=== PATIENT | male | born 1970 | race Caucasian/White ===

== ENCOUNTER → 2018-04-13 | Outpatient (CLI) | payer BC ==
--- NOTE | 2018-04-13 14:03 | Diagnostic Imaging Report ---
INDICATION: Neck pain. AP, lateral, and odontoid views of the cervical spine are obtained. FINDINGS: Prevertebral soft tissues are within normal limits. Both height and disc spaces are maintained without evidence of fracture or subluxation. The odontoid is intact. IMPRESSION: No radiographic evidence of acute cervical spine abnormality. Dictated by: Dictated on workstation # [id number]
== END ==
LOC: RAD 13:37
PROVIDERS: ATTEND Family Medicine
DX: M54.2 Cervicalgia (principal)
CPT/HCPCS: 72040

== ENCOUNTER 2018-12-31 08:59 | Outpatient (CLI) | payer BC ==
[~2018-12-31] VITALS: Ht 172.7 cm; Wt 74.4 kg
[2018-12-31] MEDS ORDERED: ATOR10TA66 PO (15:02)
== END 2018-12-31 15:03 | disposition home or self-care (01) ==
LOC: PREOP 08:59
PROVIDERS: ATTEND Surgery
DX: Z01.818 Encounter for other preprocedural examination (principal)

== ENCOUNTER 2019-01-06 09:17 | Day surgery (SDC) | payer BC ==
[~2019-01-06] VITALS: Ht 172.7 cm; Wt 74.4 kg
[~2019-01-06 09:17] MED LIST: ATOR10TA66 PO
[2019-01-06] MEDS ORDERED: NS IV 500 ML 500 ML ONE (09:18)
[2019-01-06] MEDS ORDERED: NS IV 500 ML 500 ML IV PRN (09:24)
[2019-01-06] MEDS ORDERED: MIDAZOLAM 2 MG/2 ML (VERSED) VIAL IVP ONE (09:30)
[2019-01-06] MEDS ORDERED: fentaNYL INJECTION 100 MCG/2 ML AMP IVP ONE (09:30)
[2019-01-06] MEDS ORDERED: LIDOCAINE JELLY 2% 6 ML SYRINGE MM PRN (09:30)
[2019-01-06 09:34] VITALS: BP 103/78
[2019-01-06] MEDS ORDERED: MIDAZOLAM 2 MG/2 ML (VERSED) VIAL ONE ×4 (10:04→10:05)
[2019-01-06] MEDS ORDERED: fentaNYL INJECTION 100 MCG/2 ML AMP ONE (10:05)
[2019-01-06] MEDS ORDERED: LIDOCAINE JELLY 2% 6 ML SYRINGE ONE (10:05)
--- NOTE | 2019-01-06 10:22 | Conscious Sedation/ASA ---
Conscious Sedation Pre-Proced Time 10:00 ASA Score 2 For ASA 3 and 4: Consider anesthesia and medical clearance. Also, for patients with a history of failed moderate sedation consider anesthesia. Airway Lungs Heart ASA score ASA 1: a normal healthy patient ASA 2: a patient with a mild systemic disease (mid diabetes, controlled hypertension, obesity ASA 3: a patient with a severe systemic disease that limits activity (angina, COPD, prior Myocardial infarction) ASA 4: a patient with an incapacitating disease that is a constant threat to life (CHF, renal failure) ASA 5: a moribund patient not expected to survive 24 hrs. (ruptured aneurysm) ASA 6: a declared brain- patient whose organs are being harvested. For emergent operations, add the letter E after the classification Mallampati Classification Grade 1 Sedation Plan Analgesia, Amnesia, Plan communicated to team members, Discussed options with patient/fam, Discussed risks with patient/fam The patient is an appropriate candidate to undergo the planned procedure, sedation, and anesthesia. The patient immediately re-assessed prior to indication. NAGI CARTAGENA MD Jan 06, 2019 10:22
--- NOTE | 2019-01-06 10:23 | Progress Note-Pre Operative ---
Pre-Operative Progress Note H&P Reviewed The H&P was reviewed, patient examined and no changes noted. Date Seen by Provider: Jan 06, 2019 Time Seen by Provider: 10:00 Date H&P Reviewed: Jan 06, 2019 Time H&P Reviewed: 10:00 Pre-Operative Diagnosis: screening o NAGI CARTAGENA MD Jan 06, 2019 10:22
--- NOTE | 2019-01-06 10:24 | Discharge Inst-Surgical ---
D/C Lap Instructions-OSIEL Follow Up Activity as tolerated High Fiber Diet 25g or more per day Avoid Alcohol, Caffeine, Spicy [place] and Acid foods. Drink 64 fluid oz or more of fluids per day. Symptoms to Report: Fever over 101 degree F, Nausea/Vomiting If any problems/questions: Contact your physician or go to Emergency Room NAGI CARTAGENA MD Jan 06, 2019 10:24
[2019-01-06] MEDS ORDERED: HYDROcodone/APAP 5 MG/325 MG (LORTAB) TAB PO PRN (10:30)
[2019-01-06] MEDS ORDERED: ACETAMINOPHEN 325 MG TABLET PO PRN (10:30)
[2019-01-06] MEDS ORDERED: morphine INJ 10 MG/ML 1ML (SYR OR VIAL) IVP PRN (10:30)
[2019-01-06] MEDS ORDERED: ONDANSETRON 4 MG/2 ML (SDV) Z0FRAN IVP PRN (10:30)
--- NOTE | 2019-01-06 10:54 | Progress Note-Post Operative ---
Post-Operative Progess Note Surgeon (s)/Hedis Analyst (s) Surgeon NAGI CARTAGENA MD Hedis Analyst: none Pre-Operative Diagnosis screening colo Post-Operative Diagnosis mild-mod sigmoid and descending diverticulosis. Procedure & Operative Findings Date of Procedure 01/06/19 Procedure Performed/Findings colonoscopy Anesthesia Type cs Estimated Blood Loss Estimated blood loss (mL): minimal Specimens/Packing Specimens Removed none NAGI CARTAGENA MD Jan 06, 2019 10:54
[2019-01-06 10:55] VITALS: BP 100/62
[2019-01-06 11:15] VITALS: BP 117/83
[2019-01-06 11:45] VITALS: BP 117/83
--- NOTE | 2019-01-06 15:36 | OPERATIVE REPORT ---
DATE OF SERVICE: 01/06/2019 ATTENDING PRIMARY CARE PHYSICIAN: Dr. Yates. PREOPERATIVE DIAGNOSIS: Screening colonoscopy. POSTOPERATIVE DIAGNOSIS: Mild to moderate sigmoid diverticulosis. PROCEDURE PERFORMED: Colonoscopy. SURGEON: Nagi Cartagena MD. ANESTHESIA: Conscious sedation. ESTIMATED BLOOD LOSS: Minimal. FINDINGS: As above and postop. DISPOSITION: The patient tolerated the procedure well. INDICATIONS: The patient is a 48-year-old male referred over to us for screening colonoscopy. He has not had one up to this point in his life. He states that he is otherwise doing well. He does not report any major issues with diarrhea nor constipation as well as no red blood per rectum nor any dark tarry stools. He also does not report any family history of colon cancer. DESCRIPTION OF PROCEDURE: The patient was brought to the endoscopy suite, laid in the left lateral decubitus position. After adequate IV pain and sedative medications and conscious sedation anesthesia, a digital rectal examination was performed. There were no significant hemorrhoids identified. Normal sphincter tone was felt and there were no palpable masses. Prostate gland was palpable and appeared normal. The endoscope was then intubated to the anus and rectum gently insufflated. The endoscope was then advanced through the valves of Black of the rectum with no polyps or any neoplasms identified. We then proceeded to the sigmoid colon and descending colon where there was a mild to moderate diverticulosis identified. There were no mucosal inflammatory changes to indicate any active diverticulitis. The endoscope was then advanced to the remainder of the descending, transverse and ascending colon to the cecum. These segments were normal. There were no polyps or any neoplasms identified throughout the colon or rectum. The endoscope was then slowly withdrawn while taking a second look and suctioning of residual air with no additional findings. The patient tolerated the procedure well. We will recommend continued management with a high fiber diet with at least 30 grams of fiber daily as well as significant amounts of water to promote soft stools on a daily basis and prevent constipation, hard stools or straining upon defecation. He does not need another colonoscopy for another 10 years. Job ID: [id number] DocumentID: [id number] Dictated Date: 01/06/2019 10:47:13 Hydraulic Strainer Operator Date: 01/06/2019 15:35:31 Dictated By: NAGI CARTAGENA MD
== END 2019-01-06 11:45 | disposition home or self-care (01) ==
LOC: ENDO 09:17
PROVIDERS: ATTEND Surgery
DX: Z12.11 Encounter for screening for malignant neoplasm of colon (principal); K57.30 Diverticulosis of large intestine without perforation or abscess without bleeding; E78.00 Pure hypercholesterolemia, unspecified; Z79.899 Other long term (current) drug therapy

== ENCOUNTER 2022-12-08 14:22 | Emergency (ER) | payer BC ==
[~2022-12-08] VITALS: Ht 175.3 cm; Wt 74.8 kg
[2022-12-08 14:33] VITALS: BP 116/88
--- NOTE | 2022-12-08 14:50 | ED General ---
General Chief Complaint: Laceration Stated Complaint: HEAD LACERATION Nursing Triage Note: PT AMB TO [facility] WITH COMPLAINT OF LACERTION TO RIGHT FOREHEAD. STATES WAS PLAYING PICKLE BALL, TRIP AND HIT HEAD ON METAL POLE. DENIES LOC. ALSO HAS ABRAISIONS TO BILATERAL KNEES AND RIGHT SHOULDER. UNKNOWN LAST TETANUS SHOT. (DARSHANA GATES) History of Present Illness Date Seen by Provider: December 08, 2022 Time Seen by Provider: 14:35 Initial Comments 52-year-old male was playing pickle ball at the [employer] when he tried to go for a ball, he fell hitting his head on a pole and abrasions to his right shou lder, bilateral knees and right ear. He had a noted laceration above his right eye. He denies any loss of consciousness. He has a mild headache. He does not take anticoagulants. He denies any vision changes. He is unsure of his last tetanus shot but believes its been greater than 10 years. Timing/Duration: 1/2 Hour Severity: Moderate Modifying Factors: improves with Rest Associated Systoms: Denies Symptoms (DARSHANA GATES) Allergies and Home Medications Allergies Coded Allergies: No Known Drug Allergies (Unverified , 12/31/18) Patient Home Medication List Home Medication List Reviewed: Yes (DARSHANA GATES) Atorvastatin Calcium (Atorvastatin Calcium) 10 Mg Tablet, 10 MG PO DAILY, (Reported) Entered as Reported by: WIN WAGGONER on 12/31/18 1502 Review of Systems Review of Systems Constitutional: no symptoms reported, see HPI Musculoskeletal: see HPI; No joint pain Skin: see HPI, other (Laceration 4 cm above right eye, abrasions to right ear, right shoulder and bilateral knees.) (DARSHANA GATES) All Other Systems Reviewed Negative Unless Noted: Yes (DARSHANA GATES) Past Lakmfeo-Vmtitl-Snugrc Hx Patient Social History Tobacco Use?: No Use of E-Cig and/or Vaping dev: No Substance use?: No Alcohol Use?: Yes Alcohol Frequency: Once in a while Pt feels they are or have been: No (DARSHANA GATES) Seasonal Allergies Seasonal Allergies: No (DARSHANA GATES) Past Medical History Surgeries: No Respiratory: No Cardiac: Yes High Cholesterol Neurological: No Genitourinary: No Gastrointestinal: No Musculoskeletal: No Endocrine: No HEENT: No Cancer: No Psychosocial: No Integumentary: No Blood Disorders: No (DARSHANA GATES) Family Medical History Reviewed Nursing Family Hx (DARSHANA GATES) Physical Exam Vital Signs Vital Signs - First Documented 12/08/22 14:33 Pulse 98 Resp 16 B/P (MAP) 116/88 (97) Pulse Ox 98 O2 Delivery Room Air (PETROS JONES MD) Vital Signs Capillary Refill : Less Than 3 Seconds (DARSHANA GATES) Height, Weight, BMI Height: 5'8.00" Weight: 164lbs. 0.0oz. 74.681038wg; 24.00 BMI Method: General Appearance: No Apparent Distress, WD/WN HEENT: PERRL/EOMI, Normal ENT Inspection Neck: Full Range of Motion, Normal Inspection, Non Tender, Supple Respiratory: Chest Non Tender, Lungs Clear, Normal Breath Sounds Cardiovascular: Regular Rate, Rhythm, No Edema, No Murmur Extremity: Normal Capillary Refill, Normal Range of Motion, No Pedal Edema, Other (Superficial abrasions with no active bleeding to the posterior aspect of the right shoulder, posterior right ear, and bilateral anterior knees.) Neurologic/Psychiatric: Alert, Oriented x3, No Motor/Sensory Deficits, Normal Mood/Affect (DARSHANA GATES) Procedures/Interventions Wound Location: Face Other Wound Location over right eyebrow Wound Length (cm): 4 Wound's Depth, Shape: into muscle Wound Explored: clean Irrigated w/ Saline (ccs): 100 Betadine Prep?: Yes Anesthesia: 1% Lidocaine (6ml) Volume Anesthetic (ccs): 6 Suture: Ethlion Suture Size: 5-0 Number of Sutures: 4 Sterile Dressing Applied?: Yes Progress Patient tolerated procedure well. Sterile dressing applied over sutures. (DARSHANA GATES) Progress/Results/Core Measures Suspected Sepsis SIRS Temperature: Pulse: 98 Respiratory Rate: 16 Blood Pressure 116 /88 Mean: 97 (DARSHANA GATES) Results/Orders Medications Given in ED Current Medications Medications Dose Ordered Sig/Ke Route Start Time Stop Time Status Last Admin Dose Admin Diphtheria/ Tetanus/Acell Pertussis 0.5 ml ONCE ONCE IM 12/08/22 15:00 12/08/22 15:01 DC 12/08/22 15:35 0.5 ML (PETROS JONES MD) Vital Signs/I&O 12/08/22 14:33 Pulse 98 Resp 16 B/P (MAP) 116/88 (97) Pulse Ox 98 O2 Delivery Room Air (PETROS JONES MD) Vital Signs/I&O Capillary Refill : Less Than 3 Seconds (DARSHANA GATES) Blood Pressure Mean: 97 Progress Note : Time: 14:35 Progress Note Patient assessed, will plan to suture wound above the right eye. Abrasions to right shoulder and bilateral knees cleaned with sterile saline and Hibiclens. 1520 dressing applied to all wounds. Patient was given Tylenol 1000 mg for headache and tetanus vaccine. Discharge instructions and return precautions reviewed with him. (DARSHANA GATES) Departure Impression Primary Impression: Fall Qualified Codes: W19.XXXA - Unspecified fall, initial encounter Additional Impressions: Laceration of forehead without complication Qualified Codes: S01.81XA - Laceration without foreign body of other part of head, initial encounter Abrasion Disposition: HOME, SELF-CARE Condition: Improved Departure-Patient Inst. Decision time for Depature: 15:00 (DARSHANA GATES) Referrals: ONEIL CASTELLANO MD (PCP/Family) Primary Care Physician Patient Instructions: Laceration Repair With Stitches (DC), Minor Head Injury (DC), Skin Abrasions (DC) Add. Discharge Instructions: Keep the dressings dry and in place for 24 hours, you may re-inforce if needed. Do not submerge the wound in standing water (tub, pool, sink, murray, etc). Leave sutures in place, return to Emergency Dept or your Primary Care Provider in 5-6 days for removal. You may shower, do not have water hit directly over sutures. Clean all abrasions with peroxide after shower, and apply triple antibiotic ointment. Leave open to air when at home, cover with dressing or band-aid when out of the house. Watch for signs of infection: Redness, increased tenderness, warmth, discolored drainage or foul smelling drainage. You may alternate between Tylenol 650 mg and ibuprofen 600 mg every 4 hours for headache or pain. You received a Tetanus vaccine when you were in the Emergency Dept. You have a minor head injury, a headache may be common. If it becomes more severe, you have vision changes, mental status changes, seizure, nausea/vomiting, or other concerns, come to the ER. Return to the emergency department for new, urgent health care problems. All discharge instructions reviewed with patient and/or family. Voiced understanding. ATTENDING PHYSICIAN NOTE: I was physically present as attending physician in the emergency department during the care of this patient, but I was not directly involved in the decision making or delivery of care for this patient. (PETROS JONES MD) DARSHANA GATES December 08, 2022 14:50 PETROS JONES MD December 08, 2022 21:22
[2022-12-08] MEDS ORDERED: TETANUS,DIPTH,PERTUSS P/F (BOOSTRIX) 0.5 ML VIAL IM ONE (15:00)
[2022-12-08] MEDS ORDERED: ACETAMINOPHEN 500 MG TAB (TYLENOL) PO STA (15:17)
== END 2022-12-08 15:40 | disposition home or self-care (01) ==
LOC: EDUNIT# 14:22 → ER 14:24
DX: S01.81XA Laceration without foreign body of other part of head, initial encounter (principal); S40.211A Abrasion of right shoulder, initial encounter; S80.212A Abrasion, left knee, initial encounter; S80.211A Abrasion, right knee, initial encounter; S00.411A Abrasion of right ear, initial encounter; Z23 Encounter for immunization; W01.198A Fall on same level from slipping, tripping and stumbling with subsequent striking against other object, initial encounter; Y92.39 Other specified sports and athletic area as the place of occurrence of the external cause; Y93.73 Activity, racquet and hand sports
CPT/HCPCS: 90715